=== PATIENT | male | born 1960 | race African-American/Black ===

== ENCOUNTER 2019-03-05 13:28 | Inpatient (IN) | payer OTHER ==
[2019-03-05 14:27] VITALS: BMI 18.8
--- NOTE | 2019-03-05 16:31 | HP ---
CIWA Score Nausea/Vomitin-No Nausea/No Vomiting Muscle Tremors: 1-None Visible, but Needles Anxiety: 3 Agitation: 2 Paroxysmal Sweats: 1-Minimal Palms Moist Orientation: 1-Uncertain about Date Tacttile Disturbances: 2-Mild Itch/Numbness/Burn Auditory Disturbances: 0-None Visual Disturbances: 1-Very Mild Sensitivity Headache: 1-Very Mild CIWA-Ar Total Score: 12 - Admission Criteria OASAS Guidelines: Admission for Medically Managed Detox: Requires at least one of the followin. CIWA greater than 12 2. Seizures within the past 24 hours 3. Delirium tremens within the past 24 hours 4. Hallucinations within the past 24 hours 5. Acute intervention needed for co occurring medical disorder 6. Acute intervention needed for co occurring psychiatric disorder 7. Severe withdrawal that cannot be handled at a lower level of care (continued vomiting, continued diarrhea, abnormal vital signs) requiring intravenous medication and/or fluids 8. Patient presents the following: CIWA greater than 12 Admission Criteria Met: Admission criteria met Admission ROS S - [facility] Chief Complaint: alcohol withdrawal symptoms Allergies/Adverse Reactions: Allergies Allergy/AdvReac Type Severity Reaction Status Date / Time No Known Allergies Allergy Verified 03/05/19 14:15 History of Present Illness: Patient is 58 yo male with hx crack / cocaine and alcohol dependence is here seeking alcohol detox. MMTP since 2012 [facility] on methadone 40 mg, last medicated today. Reports " I was very high and I got Narcan two days ago." longest period of sobriety eight years 1998 - 2006. PMHX : eczema. Psych: denies. Denies suicidal / homicidal ideation. Exam Limitations: No Limitations - Ebola screening Have you traveled outside of the country in the last 21 days: No Have you had contact with anyone from an Ebola affected area: No Do you have a fever: No - Review of Systems Constitutional: Chills, Loss of Appetite, Changes in sleep, Unintentional Wgt. Loss (25 lb+ past 30 days) EENT: reports: No Symptoms Reported Respiratory: reports: No Symptoms reported Cardiac: reports: No Symptoms Reported GI: reports: Poor Appetite, Poor Fluid Intake : reports: No Symptoms Reported Musculoskeletal: reports: No Symptoms Reported Integumentary: reports: Pruritus Neuro: reports: Headache Endocrine: reports: Increased Thirst, Change in Weight Hematology: reports: No Symptoms Reported Psychiatric: reports: Orientated x3, Anxious Other Systems: Reviewed and Negative Patient History - Patient Medical History Hx Anemia: No Hx Asthma: No Hx Chronic Obstructive Pulmonary Disease (COPD): No Hx Cancer: No Hx Cardiac Disorders: No Hx Congestive Heart Failure: No Hx Hypertension: No Hx Hypercholesterolemia: No Hx Pacemaker: No HX Cerebrovascular Accident: No Hx Seizures: No Hx Dementia: No Hx Diabetes: No Hx Gastrointestinal Disorders: No Hx Liver Disease: No Hx Genitourinary Disorders: No Hx Sexually Transmitted Disorders: No Hx Renal Disease (ESRD): No Hx Thyroid Disease: No Hx Human Immunodeficiency Virus (HIV): No Hx Hepatitis C: No Hx Depression: No Hx Suicide Attempt: No Hx Bipolar Disorder: No Hx Schizophrenia: No - Patient Surgical History Past Surgical History: No - PPD History Previous Implant?: No Documented Results: Negative w/o proof PPD to be Administered?: Yes - Smoking Cessation Smoking history: Current every day smoker Have you smoked in the past 12 months: Yes Aproximately how many cigarettes per day: 2 Hx Chewing Tobacco Use: No Initiated information on smoking cessation: Yes 'Breaking Loose' booklet given: 03/05/19 - Substance & Tx. History Hx Alcohol Use: Yes Hx Substance Use: Yes Substance Use Type: Alcohol, Cocaine Hx Substance Use Treatment: Yes (Mamadou Neil 2018) - Substances abused Heroin Substance route: Inhalation Frequency: Daily Amount used: 3 bags Age of first use: 10 Date of last use: 03/05/19 Alcohol Substance route: Oral Frequency: 3-6 times per week Amount used: 4-5/12oz beer Age of first use: 11 Date of last use: 03/04/19 Crack Substance route: Smoking Frequency: 3-6 times per week Amount used: $20 Age of first use: 26 Date of last use: 03/04/19 Family Disease History - Family Disease History Family History: Denies Admission Physical Exam BHS - Vital Signs Vital Signs: Vital Signs - 24 hr 03/05/19 14:09 Temperature 98.3 F Pulse Rate 61 Respiratory 16 Rate Blood Pressure 135/74 - Physical General Appearance: Yes: Within Normal Limits, Thin HEENTM: Yes: EOMI, Hearing grossly Normal, Normal ENT Inspection, Normocephalic , Normal Voice, BRANDEN, Pharynx Normal, Tm's normal Respiratory: Yes: Chest Non-Tender, Lungs Clear, Normal Breath Sounds, No Respiratory Distress, No Accessory Muscle Use Neck: Yes: No masses,lesions,Nodules, Trachea in good position Breast: Yes: Breast Exam Deferred Cardiology: Yes: Regular Rhythm, Regular Rate Abdominal: Yes: Normal Bowel Sounds, Non Tender, Flat, Soft Genitourinary: Yes: Within Normal Limits Back: Yes: Normal Inspection Musculoskeletal: Yes: full range of Motion, Gait Steady, Pelvis Stable Extremities: Yes: Normal Capillary Refill, Normal Inspection, Normal Range of Motion, Non-Tender 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 NML intact, Fully Oriented, Alert, Motor Strength 5/5, Normal Mood/Affect, Normal Response Integumentary: Yes: Normal Color, Warm, Diaphoresis, Other (+ lesion secondary to scratchin on both arms, no cellulitis) Lymphatic: Yes: Within Normal Limits - Diagnostic (1) Alcohol dependence with uncomplicated withdrawal Current Visit: Yes Status: Acute (2) Cocaine dependence Current Visit: Yes Status: Acute Qualifiers: Substance use status: uncomplicated Qualified Code(s): F14.20 - Cocaine dependence, uncomplicated (3) Nicotine dependence Current Visit: Yes Status: Acute Qualifiers: Nicotine product type: cigarettes (4) Eczema Current Visit: Yes Status: Chronic Qualifiers: Eczema type: flexural Qualified Code(s): L20.82 - Flexural eczema Cleared for Admission S - Detox or Rehab [facility] Level of Care: Medically Managed Detox Regimen/Protocol: Librium Inpatient Rehab Admission - Rehab Decision to Admit Inpatient rehab admission?: No
[2019-03-05] MEDS ORDERED: MAGNESIUM HYDROX 2400MG/30ML ORAL SUSPENSION 30 ML CUP PO PRN (16:37)
[2019-03-05] MEDS ORDERED: ACETAMINOPHEN 325 MG TABLET (FP) PO PRN ×2 (16:37)
[2019-03-05] MEDS ORDERED: BISMUTH SUBSALICYLATE 524 MG/30 ML UD PO PRN (16:37)
[2019-03-05] MEDS ORDERED: MELATONIN 5 MG TABLETS PO PRN (16:37)
[2019-03-05] MEDS ORDERED: MENTHOL/PHENOL 1 EACH UD MM PRN (16:37)
[2019-03-05] MEDS ORDERED: chlordiazePOXIDE HCL 10 MG CAPSULE PO PRN (16:37)
[2019-03-05] MEDS ORDERED: MAG HYDROX/AL HYDROX/SIMETH 30 ML UNIT-DOSE CUP PO PRN (16:37)
[2019-03-05] MEDS ORDERED: hydrOXYzine HCL 25 MG TABLET (FP) PO PRN (16:37)
[2019-03-05] MEDS ORDERED: MAGNESIUM CITRATE 300 ML BOTTLE PO PRN (16:37)
[2019-03-05] MEDS ORDERED: METHOCARBAMOL 500 MG TABLET PO PRN (16:37)
[2019-03-05] MEDS ORDERED: IBUPROFEN 400 MG TABLET (FP) PO PRN (16:37)
[2019-03-05] MEDS ORDERED: COLLOIDAL OATMEAL 1 BAR EACH TP PRN (16:43)
[2019-03-05] MEDS: THIAMINE HCL 100 MG TABLET (FP) PO SCH (22:18)
[2019-03-05] MEDS: chlordiazePOXIDE HCL 25 MG CAPSULE PO SCH (22:18)
[2019-03-06] MEDS: chlordiazePOXIDE HCL 25 MG CAPSULE PO SCH ×3 (05:25→22:13)
[2019-03-06] MEDS ORDERED: METHADONE HCL 40 MG DISPERSABLE TABLET PO ONE (10:00)
[2019-03-06] MEDS: PRENATAL VITAMINS W/ FOLIC ACID TABLET (FP) PO SCH (10:12)
[2019-03-06 10:21] LABS: HEMATOCRIT 37.4 % (35.4-49); HEMOGLOBIN 12.4 GM/dL (11.7-16.9); MEAN CELL VOLUME 87.9 fl (80-96); RBC 4.26 M/mm3 (4.00-5.60); RDW 13.5 % (11.9-15.9); WHITE BLOOD COUNT 4.3 K/mm3 (4.0-10.0)
[2019-03-06 10:31] LABS: ALBUMIN 2.7 g/dl (3.4-5.0); BILIRUBIN,TOTAL 0.2 mg/dL (0.2-1); CALCIUM 8.1 mg/dL (8.5-10.1); TOT PROT 5.7 g/dl (6.4-8.2)
[2019-03-06 10:33] LABS: PLATELET COUNT 221 K/MM3 (134-434)
--- NOTE | 2019-03-06 12:04 | PN ---
[facility] CIWA - CIWA Score Nausea/Vomitin-No Nausea/No Vomiting Muscle Tremors: 1-None Visible, but [place] Anxiety: 3 Agitation: 1-Slight > Activity Paroxysmal Sweats: 2 Orientation: 0-Oriented Tacttile Disturbances: 2-Mild Itch/Numbness/Burn Auditory Disturbances: 0-None Visual Disturbances: 1-Very Mild Sensitivity Headache: 1-Very Mild CIWA-Ar Total Score: 11 S Progress Note (SOAP) Subjective: c/o pruritus, anxious, interrupted sleep, chills Objective: 03/06/19 12:03 Vital Signs Temperature 98.6 F 03/06/19 09:16 Pulse Rate 79 03/06/19 09:16 Respiratory Rate 18 03/06/19 09:16 Blood Pressure 142/70 03/06/19 09:16 O2 Sat by Pulse Oximetry (%) Laboratory Last Values WBC 4.3 K/mm3 (4.0-10.0) 03/06/19 07:00 RBC 4.26 M/mm3 (4.00-5.60) 03/06/19 07:00 Hgb 12.4 GM/dL (11.7-16.9) 03/06/19 07:00 Hct 37.4 % (35.4-49) 03/06/19 07:00 MCV 87.9 fl (80-96) 03/06/19 07:00 MCH 29.0 pg (25.7-33.7) 03/06/19 07:00 MCHC 33.0 g/dl (32.0-35.9) 03/06/19 07:00 RDW 13.5 % (11.9-15.9) 03/06/19 07:00 Plt Count 221 K/MM3 (134-434) 03/06/19 07:00 MPV 9.0 fl (7.5-11.1) 03/06/19 07:00 Sodium 145 mmol/L (136-145) 03/06/19 07:00 Potassium 4.0 mmol/L (3.5-5.1) 03/06/19 07:00 Chloride 110 mmol/L (98-107) H 03/06/19 07:00 Carbon Dioxide 33 mmol/L (21-32) H 03/06/19 07:00 Anion Gap 3 MMOL/L (8-16) L 03/06/19 07:00 BUN 12.0 mg/dL (7-18) 03/06/19 07:00 Creatinine 1.0 mg/dL (0.55-1.3) 03/06/19 07:00 Est GFR (CKD-EPI)AfAm 94.39 03/06/19 07:00 Est GFR (CKD-EPI)NonAf 81.44 03/06/19 07:00 Random Glucose 97 mg/dL (74-106) 03/06/19 07:00 Calcium 8.1 mg/dL (8.5-10.1) L 03/06/19 07:00 Total Bilirubin 0.2 mg/dL (0.2-1) 03/06/19 07:00 AST 26 U/L (15-37) 03/06/19 07:00 ALT 22 U/L (13-61) 03/06/19 07:00 Alkaline Phosphatase 73 U/L (45-117) 03/06/19 07:00 Total Protein 5.7 g/dl (6.4-8.2) L 03/06/19 07:00 Albumin 2.7 g/dl (3.4-5.0) L 03/06/19 07:00 labs reviewed Assessment: 03/06/19 12:08 Patient Aox3 no acute distress Full ROM, ambulating in the unit Plan: continue detox continue to monitor
--- NOTE | 2019-03-06 15:24 | EKG ---
Test Reason : Blood Pressure : / mmHG Vent. Rate : 051 BPM Atrial Rate : 051 BPM P-R Int : 132 ms QRS Dur : 082 ms QT Int : 450 ms P-R-T Axes : 047 009 -10 degrees QTc Int : 414 ms SINUS BRADYCARDIA NONSPECIFIC T WAVE ABNORMALITY ABNORMAL ECG NO PREVIOUS ECGS AVAILABLE Confirmed by EMILE DOZIER MD ([id number]) on 03/06/2019 3:23:33 PM Referred By: Confirmed By:EMILE DOZIER MD
[2019-03-06] MEDS: THIAMINE HCL 100 MG TABLET (FP) PO SCH (22:13)
[2019-03-06] MEDS: HYDROCORTISONE 1% TOPICAL OINT 30 GM TUBE TP PRN (22:13)
[2019-03-07] MEDS: METHADONE HCL 40 MG DISPERSABLE TABLET PO SCH (05:43)
[2019-03-07] MEDS: chlordiazePOXIDE 5 MG CAPSULE PO SCH ×3 (05:47→22:36)
[2019-03-07] MEDS: HYDROCORTISONE 1% TOPICAL OINT 30 GM TUBE TP PRN (10:13)
[2019-03-07] MEDS: PRENATAL VITAMINS W/ FOLIC ACID TABLET (FP) PO SCH (10:13)
[2019-03-07] MEDS ORDERED: SIMETHICONE 80 MG TAB.CHEW (FP) PO PRN (14:19)
--- NOTE | 2019-03-07 14:19 | PN ---
S CIWA - CIWA Score Nausea/Vomitin-Mild Nausea/No Vomiting Muscle Tremors: 1-None Visible, but [place] Anxiety: 1-Mildly Anxious Agitation: 0-Normal Activity Paroxysmal Sweats: 2 Orientation: 0-Oriented Tacttile Disturbances: 1-Very Mild Itch/Numbness Auditory Disturbances: 0-None Visual Disturbances: 0-None Headache: 0-None Present CIWA-Ar Total Score: 6 BHS Progress Note (SOAP) Subjective: interrupted sleep, mild sweats ,increased gas Objective: 03/07/19 14:17 Vital Signs Temperature 96.1 F L 03/07/19 13:36 Pulse Rate 65 03/07/19 13:36 Respiratory Rate 16 03/07/19 13:36 Blood Pressure 132/75 03/07/19 13:36 O2 Sat by Pulse Oximetry (%) Laboratory Tests 03/06/19 03/06/19 03/06/19 07:00 07:00 07:00 WBC 4.3 RBC 4.26 Hgb 12.4 Hct 37.4 MCV 87.9 MCH 29.0 MCHC 33.0 RDW 13.5 Plt Count 221 MPV 9.0 Sodium 145 Potassium 4.0 Chloride 110 H Carbon Dioxide 33 H Anion Gap 3 L BUN 12.0 Creatinine 1.0 Est GFR (CKD-EPI)AfAm 94.39 Est GFR (CKD-EPI)NonAf 81.44 Random Glucose 97 Calcium 8.1 L Total Bilirubin 0.2 AST 26 ALT 22 Alkaline Phosphatase 73 Total Protein 5.7 L Albumin 2.7 L RPR Titer Nonreactive pt aox3 in nad lying in bed Assessment: 03/07/19 14:18 withdrawal sx's flatulence Plan: cont. detox increase fluids simethecone
[2019-03-07] MEDS: THIAMINE HCL 100 MG TABLET (FP) PO SCH (22:36)
[2019-03-08] MEDS ORDERED: chlordiazePOXIDE HCL 10 MG CAPSULE PO PRN
[2019-03-08] MEDS: METHADONE HCL 40 MG DISPERSABLE TABLET PO SCH (05:23)
[2019-03-08] MEDS: chlordiazePOXIDE HCL 10 MG CAPSULE PO SCH ×3 (05:23→22:08)
[2019-03-08] MEDS: PRENATAL VITAMINS W/ FOLIC ACID TABLET (FP) PO SCH (10:44)
--- NOTE | 2019-03-08 18:21 | PN ---
[facility] CIWA - CIWA Score Nausea/Vomitin-No Nausea/No Vomiting Muscle Tremors: None Anxiety: 0-No Anxiety, at Ease Agitation: 1-Slight > Activity Paroxysmal Sweats: No Perspiration Orientation: 0-Oriented Tacttile Disturbances: 0-None Auditory Disturbances: 0-None Visual Disturbances: 0-None Headache: 0-None Present CIWA-Ar Total Score: 1 BHS Progress Note (SOAP) Subjective: Patient denies current Withdrawal / Detox symptoms and reports that he feels well overall at this time. Objective: PATIENT A & O X 3, OBSERVED AMBULATING ON UNIT UNASSISTED. IN NO ACUTE DISTRESS. 03/08/19 18:20 Vital Signs Temperature 97.7 F 03/08/19 13:59 Pulse Rate 72 03/08/19 13:59 Respiratory Rate 18 03/08/19 13:59 Blood Pressure 149/91 03/08/19 13:59 O2 Sat by Pulse Oximetry (%) Laboratory Tests 03/06/19 03/06/19 03/06/19 07:00 07:00 07:00 WBC 4.3 RBC 4.26 Hgb 12.4 Hct 37.4 MCV 87.9 MCH 29.0 MCHC 33.0 RDW 13.5 Plt Count 221 MPV 9.0 Sodium 145 Potassium 4.0 Chloride 110 H Carbon Dioxide 33 H Anion Gap 3 L BUN 12.0 Creatinine 1.0 Est GFR (CKD-EPI)AfAm 94.39 Est GFR (CKD-EPI)NonAf 81.44 Random Glucose 97 Calcium 8.1 L Total Bilirubin 0.2 AST 26 ALT 22 Alkaline Phosphatase 73 Total Protein 5.7 L Albumin 2.7 L RPR Titer Nonreactive TB (QFT) Incubation TB Test (QFT) Nil TB Test (QFT) Mitogen TB Test (QFT) Antigen TB Test (QFT) TB Positive Criteria 03/06/19 07:00 WBC RBC Hgb Hct MCV MCH MCHC RDW Plt Count MPV Sodium Potassium Chloride Carbon Dioxide Anion Gap BUN Creatinine Est GFR (CKD-EPI)AfAm Est GFR (CKD-EPI)NonAf Random Glucose Calcium Total Bilirubin AST ALT Alkaline Phosphatase Total Protein Albumin RPR Titer TB (QFT) Incubation TB Test (QFT) Nil 0.03 TB Test (QFT) Mitogen 6.73 TB Test (QFT) Antigen 0.07 TB Test (QFT) Negative TB Positive Criteria LABS NOTED. Assessment: 03/08/19 18:20 WITHDRAWAL SYMPTOMS. Plan: CONTINUE DETOX. PATIENT SCHEDULED FOR D/C FROM DETOX UNIT TOMORROW.
[2019-03-08] MEDS: THIAMINE HCL 100 MG TABLET (FP) PO SCH (22:09)
[2019-03-09] MEDS ORDERED: chlordiazePOXIDE HCL 10 MG CAPSULE PO ONE (05:00)
[2019-03-09] MEDS: METHADONE HCL 40 MG DISPERSABLE TABLET PO SCH (05:14)
[2019-03-09 09:14] VITALS: BP 141/79; PULSE 61; TEMP 96.9
[2019-03-09] MEDS: PRENATAL VITAMINS W/ FOLIC ACID TABLET (FP) PO SCH (09:30)
--- NOTE | 2019-03-09 10:15 | DS ---
[facility] Detox Discharge Summary Admission Date: 03/05/19 Discharge Date: 03/09/19 - History Present History: Alcohol Dependence Additional Comments: 58 years old male admitted on 03/05/19 for acute alcohol withdrawal sx management doing well throughout the detox staty no complication noted at this time alert oriented x 3 S1S2 clear lung bilaterally return to methadone program will bring in medication list and lab report for follow up Pertinent Past History: patient agrees to return to methadone program for follow up with medication list and lab report - Physical Exam Results Vital Signs: Vital Signs Temperature 96.9 F L 03/09/19 09:13 Pulse Rate 61 03/09/19 09:13 Respiratory Rate 18 03/09/19 09:13 Blood Pressure 141/79 03/09/19 09:13 O2 Sat by Pulse Oximetry (%) Pertinent Admission Physical Exam Findings: alcohol withdrawal sx Vital Signs Temperature 96.9 F L 03/09/19 09:13 Pulse Rate 61 03/09/19 09:13 Respiratory Rate 18 03/09/19 09:13 Blood Pressure 141/79 03/09/19 09:13 O2 Sat by Pulse Oximetry (%) Laboratory Last Values WBC 4.3 K/mm3 (4.0-10.0) 03/06/19 07:00 RBC 4.26 M/mm3 (4.00-5.60) 03/06/19 07:00 Hgb 12.4 GM/dL (11.7-16.9) 03/06/19 07:00 Hct 37.4 % (35.4-49) 03/06/19 07:00 MCV 87.9 fl (80-96) 03/06/19 07:00 MCH 29.0 pg (25.7-33.7) 03/06/19 07:00 MCHC 33.0 g/dl (32.0-35.9) 03/06/19 07:00 RDW 13.5 % (11.9-15.9) 03/06/19 07:00 Plt Count 221 K/MM3 (134-434) 03/06/19 07:00 MPV 9.0 fl (7.5-11.1) 03/06/19 07:00 Sodium 145 mmol/L (136-145) 03/06/19 07:00 Potassium 4.0 mmol/L (3.5-5.1) 03/06/19 07:00 Chloride 110 mmol/L (98-107) H 03/06/19 07:00 Carbon Dioxide 33 mmol/L (21-32) H 03/06/19 07:00 Anion Gap 3 MMOL/L (8-16) L 03/06/19 07:00 BUN 12.0 mg/dL (7-18) 03/06/19 07:00 Creatinine 1.0 mg/dL (0.55-1.3) 03/06/19 07:00 Est GFR (CKD-EPI)AfAm 94.39 03/06/19 07:00 Est GFR (CKD-EPI)NonAf 81.44 03/06/19 07:00 Random Glucose 97 mg/dL (74-106) 03/06/19 07:00 Calcium 8.1 mg/dL (8.5-10.1) L 03/06/19 07:00 Total Bilirubin 0.2 mg/dL (0.2-1) 03/06/19 07:00 AST 26 U/L (15-37) 03/06/19 07:00 ALT 22 U/L (13-61) 03/06/19 07:00 Alkaline Phosphatase 73 U/L (45-117) 03/06/19 07:00 Total Protein 5.7 g/dl (6.4-8.2) L 03/06/19 07:00 Albumin 2.7 g/dl (3.4-5.0) L 03/06/19 07:00 RPR Titer Nonreactive (NONREACTIVE) 03/06/19 07:00 TB (QFT) Incubation (.) 03/06/19 07:00 TB Test (QFT) Nil 0.03 IU/mL (.) 03/06/19 07:00 TB Test (QFT) Mitogen 6.73 IU/mL (.) 03/06/19 07:00 TB Test (QFT) Antigen 0.07 IU/mL (.) 03/06/19 07:00 TB Test (QFT) Negative (Negative) 03/06/19 07:00 TB Positive Criteria (.) 03/06/19 07:00 lab noted - Treatment Hospital Course: Detox Protocol Followed, Detoxed Safely, Responded well, Discharged Condition Good, Rehab Referral Accepted Patient has Accepted a Rehab Referral to: [facility] - Medication Discharge Medications: Ambulatory Orders NK [No Known Home Medication] 03/05/19 - Diagnosis (1) Methadone maintenance therapy patient Status: Chronic (2) Alcohol dependence with uncomplicated withdrawal Status: Acute (3) Nicotine dependence Status: Acute Qualifiers: Nicotine product type: cigarettes Substance use status: in withdrawal Qualified Code(s): F17.213 - Nicotine dependence, cigarettes, with withdrawal (4) Eczema Status: Chronic Qualifiers: Eczema type: flexural Qualified Code(s): L20.82 - Flexural eczema - AMA Did Patient Leave Against Medical Advice: No
== END 2019-03-09 09:30 | disposition home or self-care (01) | DRG 773 ==
LOC: YASAS 13:28 → Y3N 17:24
PROVIDERS: ADMIT Surgery; ATTEND Surgery
PROC: HZ2ZZZZ Detoxification Services for Substance Abuse Treatment (ICD-10-PCS; principal; 2019-03-05)
DX: F10.230 Alcohol dependence with withdrawal, uncomplicated (principal); F11.20 Opioid dependence, uncomplicated; F14.20 Cocaine dependence, uncomplicated; F17.213 Nicotine dependence, cigarettes, with withdrawal; L20.82 Flexural eczema; R14.3 Flatulence
CPT/HCPCS: 36415; 80053; 85027; 86480; 86593; 93005; 93010